=== PATIENT | female | born 1965 | race African-American/Black ===

== ENCOUNTER 2019-05-15 15:09 | Inpatient (IN) | payer BC ==
[~2019-05-15] VITALS: Ht 165.1 cm; Wt 83.1 kg
[2019-05-15] MEDS ORDERED: IV NORMAL SALINE 1,000ML 1,000 ML IV ONE ×2 (15:30→16:45)
--- NOTE | 2019-05-15 15:31 | EKG ---
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
--- NOTE | 2019-05-15 15:47 | PHYS DOC ---
Past History Past Medical History: Hypertension Past Surgical History: No Surgical History Smoking: Non-smoker Alcohol Use: Occasionally Drug Use: None Adult General Chief Complaint Chief Complaint: SYNCOPE HPI HPI 54-year-old female presents with report of syncopal episode which occurred today while working at the [employer]. Patient reports she ended up dropping to her knees. Per report patient was allegedly assisted to the ground but started to "tense and posture "for approximately 30 seconds. Patient denies loss of bowel or bladder. Denies tongue biting or pain. Patient was not postictal. Denies history of seizures. Denies history of prior syncopal episodes. Patient reports he had just gotten up and started walking when symptoms occurred. Reports some associated nausea and chest discomfort. Denies fever or chills. Denies neck pain. Denies headache. Denies trauma. Review of Systems Review of Systems Constitutional: Denies fever or chills Eyes: Denies redness or eye pain HENT: Denies nasal congestion or sore throat Respiratory: Denies cough or shortness of breath Cardiovascular: Reports chest discomfort; denies palpitations GI: Denies abdominal pain or vomiting; reports nausea : Denies dysuria or hematuria Musculoskeletal: Denies back pain or joint pain Integument: Denies rash or skin lesions Neurologic: Denies headache, focal weakness or sensory changes; reports lightheadedness and syncopal episode Complete systems were reviewed and found to be within normal limits, except as documented in this note. Current Medications Current Medications Current Medications Medications (Trade) Dose Ordered Sig/Yusuf Start Time Stop Time Status Last Admin Dose Admin Sodium Chloride 1,000 ml @ 1,000 mls/hr 1X ONCE 05/15/19 15:30 05/15/19 16:29 Allergies Allergies Allergies Coded Allergies Type Severity Reaction Last Updated Verified amoxicillin Allergy Unknown 05/15/19 Yes cheese Allergy Unknown 05/15/19 Yes Physical Exam Physical Exam Constitutional: Well developed, well nourished, no acute distress, non-toxic appearance HENT: Normocephalic, atraumatic, oropharynx dry Eyes: PERRL, EOMI, conjunctiva normal, no discharge, no nystagmus Neck: Normal range of motion, no tenderness, supple Cardiovascular: Heart rate normal, regular rhythm Lungs & Thorax: Bilateral breath sounds clear to auscultation, no wheezing Abdomen: Soft, no tenderness Skin: Warm, dry, no erythema, no rash Extremities: No tenderness, ROM intact, no edema Neurologic: Alert and oriented X 3, normal motor function, normal sensory function, no focal deficits noted Psychologic: Affect normal, judgment normal EKG EKG @1512 NSR at 79bpm, NO ST elevation, nonspecific t wave inversion III, aVF, and V3-V6. Radiology/Procedures Radiology/Procedures PROCEDURE: CT HEAD WO CONTRAST EXAM: Head CT without contrast. HISTORY: Syncope. TECHNIQUE: Computed tomographic images of the head were obtained without contrast. *One or more of the following individualized dose reduction techniques were utilized for this examination: 1. Automated exposure control. 2. Adjustment of the mA and/or kV according to patient size. 3. Use of iterative reconstruction technique. COMPARISON: None. FINDINGS: There is no acute or subacute extra-axial or intraparenchymal hemorrhage. There is no mass effect or midline shift. There is no hydrocephalus. The martínez-white matter differentiation pattern is intact. The visualized portions of the orbits, paranasal sinuses and mastoid air cells are unremarkable. No suspicious calvarial lesion is seen. IMPRESSION: No acute intracranial findings. Electronically signed by: Irena Giron MD (05/15/2019 4:04 PM) [facility] PROCEDURE: CHEST PA & LATERAL EXAM: Chest, 2 views. HISTORY: Syncope. COMPARISON: None. FINDINGS: 2 views of the chest are obtained. There is no infiltrate, pleural effusion or pneumothorax. The heart is normal in size. There is suspected bilateral lower lobe atelectasis. There is a large hiatal hernia. There is artifact related to hair extensions overlying the superior thorax. IMPRESSION: Suspected bilateral lower lobe atelectasis. Electronically signed by: Irena Giron MD (05/15/2019 4:13 PM) [facility] Course & Med Decision Making Course & Med Decision Making Pertinent Labs and Imaging studies reviewed. (See chart for details) Patient presents with history of present illness and physical exam concerning for syncopal episode. Patient neurologically intact upon arrival. NIH SS 0. Patient also complaining of some chest discomfort. EKG stable. Labs obtained and posted to chart. Initial troponin within normal limits. Lactic acid elevated. No signs of infection noted. CT head without acute process. Chest x-ray stable. Nausea addressed. IV fluid hydration given. Aspirin provided. UA pending. Patient requiring admission for further evaluation and treatment. Discussed with Dr. Torrez (PCP) who is in agreement with admission. Discussed findings and plan with patient, who acknowledges understanding and agreement. Dragon Disclaimer Dragon Disclaimer This electronic medical record was generated, in whole or in part, using a voice recognition dictation system. Departure Departure: Impression: Primary Impression: Syncope Additional Impression: Lactic acidosis Disposition: ADMITTED INPATIENT Admitting Physician: Nga Torrez Condition: STABLE Referrals: NGA TORREZ MD (PCP) NIHSS - ED NIH Stroke Scale: NIH Stroke Scale Response (Comments) Value Level of Consciousness: 0 Alert/Responsive 0 LOC Questions: 0 Answers both correctly 0 LOC Commands: 0 Performs both tasks 0 Best Gaze: 0 Normal 0 Visual: 0 No visual loss 0 Facial Palsy: 0 Normal, symmetrical 0 Motor - Left Arm 0 No drift 0 Motor - Right Arm 0 No drift 0 Motor - Left Leg 0 No drift 0 Motor: Right Leg 0 No drift 0 Limb Ataxia: 0 Absent 0 Sensory: 0 No loss 0 Best Language: 0 Normal 0 Dysathria: 0 Normal 0 Extinction and Inattention: 0 Normal 0 Total 0 HEART Score for Chest Pain PTs The HEART Score for CP Pts HEART Score for Chest Pain: HEART Score for Chest Pain Response (Comments) Value History Slighlty/Non-Suspicious 0 ECG Normal 0 Age >45 - < 65 1 Troponin < Normal Limit 0 Total 1 Risk Factors: Risk Factors: DM, Current or recent (<one month) smoker, HTN, HLP, family hi story of CAD, obesity. Risk Scores: Score 0 - 3: 2.5% MACE over next 6 weeks - Discharge Home Score 4 - 6: 20.3% MACE over next 6 weeks - Admit for Clinical Observation Score 7 - 10: 72.7% MACE over next 6 weeks - Early Invasive Strategies Problem Qualifiers Primary Impression: Syncope Syncope type: unspecified Qualified Codes: R55 - Syncope and collapse NI ZHU DO May 15, 2019 15:47
[2019-05-15 15:59] LABS: BASO % 1 % (0-3); EOS % 0 % (0-3); HEMATOCRIT 34.6 % (36.0-47.0); HEMOGLOBIN 10.9 g/dL (12.0-15.5); LYMPH # 1.2 x10^3/uL (1.0-4.8); LYMPH % 21 % (24-48); MEAN CORPUSCULAR HEMOGLOBIN 23 pg (25-35); MEAN CORPUSCULAR HGB CONC 32 g/dL (31-37); MEAN CORPUSCULAR VOLUME 74 fL (79-100); MONO # 0.4 x10^3/uL (0.0-1.1); MONO % 8 % (0-9); NEUT # 4.1 x10^3uL (1.8-7.7); NEUT % 71 % (31-73); PLATELET COUNT 376 x10^3/uL (140-400); RED CELL DISTRIBUTION WIDTH 19.1 % (11.5-14.5); WHITE BLOOD COUNT 5.8 x10^3/uL (4.0-11.0)
--- NOTE | 2019-05-15 16:07 | RAD ---
EXAM: Head CT without contrast. HISTORY: Syncope. TECHNIQUE: Computed tomographic images of the head were obtained without contrast. *One or more of the following individualized dose reduction techniques were utilized for this examination: 1. Automated exposure control. 2. Adjustment of the mA and/or kV according to patient size. 3. Use of iterative reconstruction technique. COMPARISON: None. FINDINGS: There is no acute or subacute extra-axial or intraparenchymal hemorrhage. There is no mass effect or midline shift. There is no hydrocephalus. The martínez-white matter differentiation pattern is intact. The visualized portions of the orbits, paranasal sinuses and mastoid air cells are unremarkable. No suspicious calvarial lesion is seen. IMPRESSION: No acute intracranial findings. Electronically signed by: Irena Giron MD (05/15/2019 4:04 PM) [facility]
[2019-05-15 16:11] LABS: ANION GAP 12 (6-14); BLOOD UREA NITROGEN 8 mg/dL (7-20); BUN/CREATININE RATIO 8 (6-20); CALCIUM 8.5 mg/dL (8.5-10.1); CARBON DIOXIDE 25 mmol/L (21-32); CHLORIDE 101 mmol/L (98-107); GFR 70.2; GLUCOSE 155 mg/dL (70-99); POTASSIUM 4.1 mmol/L (3.5-5.1); SODIUM 138 mmol/L (136-145)
--- NOTE | 2019-05-15 16:16 | RAD ---
EXAM: Chest, 2 views. HISTORY: Syncope. COMPARISON: None. FINDINGS: 2 views of the chest are obtained. There is no infiltrate, pleural effusion or pneumothorax. The heart is normal in size. There is suspected bilateral lower lobe atelectasis. There is a large hiatal hernia. There is artifact related to hair extensions overlying the superior thorax. IMPRESSION: Suspected bilateral lower lobe atelectasis. Electronically signed by: Irena Giron MD (05/15/2019 4:13 PM) [facility]
[2019-05-15 16:26] LABS: ALBUMIN 3.4 g/dL (3.4-5.0); ALBUMIN/GLOBULIN RATIO 0.9 (1.0-1.7); ALK PHOS 73 U/L (46-116); ALT (SGPT) 20 U/L (14-59); AST (SGOT) 31 U/L (15-37); LIPASE 146 U/L (73-393); MAGNESIUM 2.2 mg/dL (1.8-2.4); TOTAL BILIRUBIN 0.2 mg/dL (0.2-1.0); TOTAL PROTEIN 7.3 g/dL (6.4-8.2)
[2019-05-15] MEDS ORDERED: ONDANSETRON PF 4 MG/2 ML VIAL. IVP ONE (16:30)
[2019-05-15] MEDS ORDERED: ASPIRIN 325 MG TABLET PO ONE (16:30)
[2019-05-15 16:37] LABS: PLT ESTIMATE ADEQUATE (ADEQUATE)
[2019-05-15 16:38] LABS: OVALOCYTES FEW; TEAR DROP CELLS FEW
[2019-05-15 16:39] LABS: MICROCYTOSIS MOD
[2019-05-15 16:40] LABS: ANISOCYTOSIS MOD; HYPOCHROMIA MOD; POLYCHROMASIA SLIGHT; TARGET CELLS OCC; TOXIC GRANULATION SLIGHT; TOXIC VACUOLATION SLIGHT
[2019-05-15] MEDS ORDERED: ONDANSETRON PF 4 MG/2 ML VIAL. IVP PRN (16:45)
[2019-05-15 17:56] LABS: BACTERIA,URINE MANY /HPF (0-FEW); BILIRUBIN,URINE NEG (NEG); CLARITY,URINE HAZY; COLOR,URINE STRAW; GLUCOSE,URINE 100 mg/dL (NEG); HYALINE CASTS, URINE OCC /HPF; NITRITE,URINE NEG (NEG); RBC,URINE OCC /HPF (0-2); SQUAMOUS EPITHELIAL CELL,UR MOD /LPF; UROBILINOGEN,URINE 0.2 mg/dL (0.2 mg/dL)
[2019-05-15 19:45] VITALS: BP 135/86
[2019-05-15] MEDS ORDERED: METO50TA6 PO (21:21)
[2019-05-15 22:48] VITALS: BP 126/77
[2019-05-16 05:32] VITALS: BP 137/86
[2019-05-16] MEDS ORDERED: ACETAMINOPHEN 325 MG TABLET PO SCH (07:30)
[2019-05-16] MEDS: ACETAMINOPHEN 650 MG/20.3 ML SOLUTION. PO PRN ×3 (07:35→21:52)
[2019-05-16] MEDS ORDERED: ZOLPIDEM 5 MG TABLET. PO PRN (08:15)
[2019-05-16] MEDS ORDERED: ACETAMINOPHEN 500 MG TABLET PO PRN (08:15)
[2019-05-16 08:46] LABS: INFLUENZA A PATIENT NEGATIVE (NEGATIVE); INFLUENZA B PATIENT NEGATIVE (NEGATIVE)
[2019-05-16 11:17] VITALS: BP 141/71
--- NOTE | 2019-05-16 12:24 | EKG ---
[address] [address] Test Date: 2019-05-16 Test Time: 09:57:12 Pat Name: ARMANDO ORONA Department: Room: [facility] 1 Gender: Power Lineworker: : 1965 Requested By: NGA TORREZ Order Number: [id number] Reading MD: Juan J Haynes MD Measurements Intervals [place] Rate: P: [place]: QRS: QRSD: T: QT: QTc: Interpretive Statements SR Electronically Signed On 05-17-2019 9:36:39 CDT by Juan J Haynes MD
[2019-05-16] MEDS ORDERED: HYDROXYCHLOROQUINE 200 MG TABLET PO SCH (12:45)
[2019-05-16] MEDS: HYDROXYCHLOROQUINE (PROGRAM) 200 MG TABLET PO SCH ×2 (13:21→21:52)
[2019-05-16] MEDS ORDERED: AZITHROMYCIN 250 MG TABLET. PO ONE (13:30)
[2019-05-16 15:00] VITALS: BP 116/76
[2019-05-16] MEDS ORDERED: ALBUTEROL SULFATE 8GM INHALER. INH PRN (16:30)
[2019-05-16] MEDS ORDERED: BENZONATATE 100 MG CAPSULE. PO PRN (16:30)
[2019-05-16 17:00] VITALS: BP 135/81
[2019-05-16] MEDS: BENZONATATE 100 MG CAPSULE. PO SCH ×2 (17:10→21:52)
--- NOTE | 2019-05-16 18:44 | HP ---
ADMIT DATE: 05/15/2019 HISTORY OF PRESENT ILLNESS: A 54-year-old female who came in, apparently works at the [employer], apparently had a syncopal spell, not been feeling well for the last couple of days, fell to her knees, feeling very tense and the patient noted that it lasted about 30 seconds or so. She denies any seizure activity, nausea, vomiting or problems with loss of bowel or bladder. The patient came in through the Emergency Room and was monitored carefully. She was found to have low-grade temperature, difficulty breathing and as a result of this, the patient was admitted to the hospital for further evaluation and treatment thereof. PAST MEDICAL HISTORY: Hypertension. IMMUNIZATION: Influenza vaccination up-to-date. Works at the [employer]. FAMILY HISTORY: Father with myocardial infarction and brother with lung cancer, mother with diabetes. ALLERGIES: AMOXICILLIN AND CHEESE. SOCIAL HISTORY: The patient denies smoking, alcohol or drug use. MEDICATIONS: The patient's medications are reconciled in the chart consistent with metoprolol 50 mg daily. REVIEW OF SYSTEMS: Includes that of patient denied any fever, chills initially, but did develop a fever here in the office. Denies any eye problems. Denies any nasal congestion. Denies any cough, shortness of breath presently. Denies abdominal pain. Does have some nausea, but no vomiting. No problem with urination. Neurologically baseline there. The patient has never had previous symptoms like this before. PHYSICAL EXAMINATION: GENERAL: This is a pleasant white female. VITAL SIGNS: Blood pressure 126/77, respiratory rate 20, pulse 70, temperature up to 100.1. HEENT: The patient's head was atraumatic, normocephalic. Eyes: PERRLA without jaundice. The mouth and throat were normal. NECK: Supple. No thyromegaly. LUNGS: Diminished throughout, but basically clear to auscultation with decrease in the bases with some crackles noted. CARDIOVASCULAR: Regular sinus rhythm, S1, S2, without murmur, rub, thrill, or extra heart sounds. ABDOMEN: Soft, nontender, no rebound or guarding. Positive bowel sounds, no hepatosplenomegaly was noted. EXTREMITIES: No clubbing, cyanosis, nor edema. NEUROLOGIC: The patient was alert and oriented x 3. LABORATORY DATA: The patient did have an elevated lactic acid greater than 10, hemoglobin 10.9 and 34 with an MCV of 74, white count 5.8, but she had a very atypical differential. The patient's cardiac enzymes were negative. Electrolytes were stable. Blood sugar 155. Urine did show 5-10 whites and serology was negative for flu. COVID-19 is still pending. IMPRESSION: The patient was admitted for possible pneumonic process as well as syncope, lactic acidosis, hypertension. The patient continued to be monitored carefully, make further evaluation on her. Continue with IV antibiotic therapy and further evaluation on her as indicated. NGA TORREZ MD DR: SASHA/deedee JOB#: [id number] / [id number]
[2019-05-16 19:00] VITALS: BP 119/66
[2019-05-16 23:00] VITALS: BP 140/83
[2019-05-17 05:10] VITALS: BP 135/83
[2019-05-17] MEDS: ACETAMINOPHEN 650 MG/20.3 ML SOLUTION. PO PRN ×2 (06:30→20:16)
[2019-05-17 06:47] LABS: BASO % 0 % (0-3); EOS % 0 % (0-3); HEMATOCRIT 32.7 % (36.0-47.0); HEMOGLOBIN 10.5 g/dL (12.0-15.5); LYMPH # 1.2 x10^3/uL (1.0-4.8); LYMPH % 24 % (24-48); MEAN CORPUSCULAR HEMOGLOBIN 24 pg (25-35); MEAN CORPUSCULAR HGB CONC 32 g/dL (31-37); MEAN CORPUSCULAR VOLUME 73 fL (79-100); MONO # 0.4 x10^3/uL (0.0-1.1); MONO % 8 % (0-9); NEUT # 3.4 x10^3uL (1.8-7.7); NEUT % 68 % (31-73); PLATELET COUNT 353 x10^3/uL (140-400); RED BLOOD COUNT 4.47 x10^6/uL (3.50-5.40); RED CELL DISTRIBUTION WIDTH 19.1 % (11.5-14.5)
[2019-05-17 06:59] LABS: ALBUMIN/GLOBULIN RATIO 0.7 (1.0-1.7); CALCIUM 8.4 mg/dL (8.5-10.1); GFR 70.2; POTASSIUM 3.8 mmol/L (3.5-5.1); TOTAL BILIRUBIN 0.2 mg/dL (0.2-1.0); TOTAL PROTEIN 7.2 g/dL (6.4-8.2)
[2019-05-17] MEDS: HYDROXYCHLOROQUINE (PROGRAM) 200 MG TABLET PO SCH ×2 (09:03→20:16)
[2019-05-17] MEDS: BENZONATATE 100 MG CAPSULE. PO SCH ×2 (09:03→20:16)
[2019-05-17] MEDS: AZITHROMYCIN 250 MG TABLET. PO SCH (09:03)
--- NOTE | 2019-05-17 09:27 | PN ---
DATE: SUBJECTIVE: A 54-year-old female who has been having some acute respiratory distress, possible pneumonia. The patient also is being checked for COVID-19. She did have a fever. C-reactive protein is elevated at 14, albumin slightly low, but other than that, the patient seems to be resting fairly comfortably, says she is breathing a lot easier. OBJECTIVE: VITAL SIGNS: Blood pressure 135/83, respiratory rate 20, pulse 80. Temperature still at 100.3 and will continue to be monitored carefully. We will probably start her on some Zithromax as well. Apparently, she is already on Levaquin and Zithromax and Plaquenil 200 mg b.i.d. GENERAL: The patient otherwise is alert and oriented, says she feels much better. LUNGS: Diminished, some crackles in the bases, but improved. CARDIOVASCULAR: Regular sinus rhythm. ABDOMEN: Soft, nontender. NEUROLOGIC: Alert and oriented. She seems to be doing extremely well overall. The patient otherwise will continued to be monitored carefully. She is in the ICU on a very tight COVID-19 protocol with isolation for her as well as marked dressing of the staff going in and out of her room. IMPRESSION: Acute respiratory failure, probable acute bronchitis, rule out COVID-19. Abnormal differential on her CBC. We will continue to monitor that, and moderate protein malnutrition. NGA TORREZ MD DR: SASHA/deedee JOB#: [id number] / [id number]
[2019-05-17 11:00] VITALS: BP 124/81
[2019-05-17] MEDS ORDERED: BUTALB/APAP/CAFEIN 50/325/40MG TABLET. PO PRN (13:00)
[2019-05-17 15:00] VITALS: BP 124/81
[2019-05-17 19:33] VITALS: BP 134/82
[2019-05-17] MEDS: LACTOBACILLUS RHAMNOSUS GG 1 CAPSULE. PO SCH (20:16)
[2019-05-17 23:37] VITALS: BP 120/78
[2019-05-18 06:07] VITALS: BP 117/80
[2019-05-18] MEDS: BENZONATATE 100 MG CAPSULE. PO SCH (07:53)
[2019-05-18] MEDS: LACTOBACILLUS RHAMNOSUS GG 1 CAPSULE. PO SCH (07:53)
[2019-05-18] MEDS: HYDROXYCHLOROQUINE (PROGRAM) 200 MG TABLET PO SCH (07:53)
[2019-05-18] MEDS: AZITHROMYCIN 250 MG TABLET. PO SCH (07:54)
[2019-05-18] MEDS ORDERED: levoFLOXacin 500 MG TABLET PO SCH (09:00)
[2019-05-18] MEDS: ACETAMINOPHEN 650 MG/20.3 ML SOLUTION. PO PRN (09:15)
[2019-05-18] MEDS ORDERED: HYDR200T5 PO (09:46)
[2019-05-18] MEDS ORDERED: AZIT250T6 PO (09:46)
[2019-05-18] MEDS ORDERED: BUTA1CAP31 PO ×2 (09:59→10:17)
[2019-05-18] MEDS ORDERED: BENZ100C PO ×2 (09:59→10:17)
[2019-05-18 11:28] VITALS: BP 117/69
[2019-05-18] MEDS ORDERED: BUTA1TAB23 PO (11:31)
--- NOTE | 2019-05-21 20:28 | DS ---
DATE OF DISCHARGE: 05/18/2019 HOSPITAL COURSE: A 54-year-old female apparently works at the [employer], had a syncopal spell and fell to her knees. She was out for about 30 seconds. She came in through the Emergency Room and was found to have a low-grade temperature. ____, the ER physicians ____ noted that she had COVID-19 and she was admitted. She was in some respiratory distress as she was having difficulty breathing initially. The patient was placed on a combination of hydroxychloroquine, Plaquenil as well as Zithromax. She made excellent recovery with this and turned around almost within the next 24 hours. The patient did have a low hemoglobin of 10.5 and 32. She did have a marked abnormal differential which were still trying to get the report back from the pathologist for that. The patient in turn made good progress during the rest of her hospitalization, her breathing markedly improved. She was treated per protocol of the CoV-19 protocol. She also grew out in her urine Klebsiella pneumoniae, had been placed on antibiotics for this and she will be monitored accordingly as an outpatient for recovery. She was told to recover for at least another 10 days to 2 weeks at home before trying to return to work. IMPRESSION: Acute respiratory failure, pneumonia, anemia of chronic disease, CoV-19/SARS infection, Klebsiella pneumoniae urinary tract infection, moderate protein malnutrition. The patient will be sent home regular diet, decreased activity. Continue on home meds and antibiotics and will continue to be monitored carefully as an outpatient. NGA TORREZ MD DR: SASHA/deedee JOB#: [id number] / [id number]
== END 2019-05-18 12:20 | disposition home or self-care (01) | DRG 177 ==
LOC: ER 15:09 → 1 SOUTH 16:38 → MERGE 16:38 → ICU 05-16 09:20
PROVIDERS: ADMIT Family Medicine; ATTEND Family Medicine
DX: U07.1 COVID-19 (principal); J96.00 Acute respiratory failure, unspecified whether with hypoxia or hypercapnia; E44.0 Moderate protein-calorie malnutrition; E87.2 Acidosis; N39.0 Urinary tract infection, site not specified; I10 Essential (primary) hypertension; Z80.1 Family history of malignant neoplasm of trachea, bronchus and lung; B96.1 Klebsiella pneumoniae [K. pneumoniae] as the cause of diseases classified elsewhere; Z82.49 Family history of ischemic heart disease and other diseases of the circulatory system; Z83.3 Family history of diabetes mellitus; R07.89 Other chest pain; D63.8 Anemia in other chronic diseases classified elsewhere; J98.8 Other specified respiratory disorders; Z88.8 Allergy status to other drugs, medicaments and biological substances; Z79.899 Other long term (current) drug therapy; Z68.30 Body mass index [BMI] 30.0-30.9, adult
CPT/HCPCS: 36415; 70450; 71046; 80053; 81001; 82553; 83605; 83690; 83735; 83880; 84145; 84484; 85025; 85379; 85610; 85730; 86140; 87086; 87186; 87804; 93005; 96361; 96374; J0456; J1956; J2405; J7613; 99285-25; J7030